=== PATIENT | female | born 1935 | race Caucasian/White ===

== ENCOUNTER 2016-06-28 17:03 | Emergency (ER) | payer OTHER ==
--- NOTE | 2016-06-28 18:03 | PROVIDER DOCUMENTATION ---
HPI-EENT General - General Chief Complaint: Nose Bleed Stated Complaint: NOSE BLEED Time Seen by Provider: 06/28/16 17:57 Source: patient Allergies/Adverse Reactions: Patient Allergies Allergy/AdvReac Type Severity Reaction Status Date / Time allopurinol Allergy Unknown Verified 06/28/16 20:11 amlodipine besylate * Allergy Unknown Verified 06/28/16 20:11 [From Norvasc] cephalexin monohydrate * Allergy RASH Verified 06/28/16 20:11 [From Keflex] gemfibrozil [From Lopid] Allergy Unknown Verified 06/28/16 20:11 Home Medications: Home Medication List Medication Instructions Recorded Confirmed Last Taken Type Fentanyl 25 Microgm/Hr Patch 1 each TD Q72H #10 patch 03/04/15 06/28/16 Unknown Rx [Duragesic 25 Microgm/Hr Patch] Acetaminophen [Tylenol] 500 mg PO Q6H PRN PRN 06/28/16 06/28/16 Unknown History Aspirin [Aspir-Low] 81 mg PO DAILY 06/28/16 06/28/16 Unknown History Bumetanide 2 mg PO BID 06/28/16 06/28/16 Unknown History Clopidogrel [Plavix] 75 mg PO DAILY 06/28/16 06/28/16 Unknown History Cyanocobalamin/Folic Acid [Vitamin 4 each PO DAILY 06/28/16 06/28/16 Unknown History [id number] Acid Tablet] Duloxetine [Cymbalta] 30 mg PO DAILY 06/28/16 06/28/16 Unknown History Famotidine 20 mg PO DAILY 06/28/16 06/28/16 Unknown History Levothyroxine [Synthroid] 88 microgm PO DAILY 06/28/16 06/28/16 Unknown History Loperamide [Imodium] 2 mg PO PRN PRN 06/28/16 06/28/16 Unknown History Metoprolol [Lopressor] 25 mg PO BID 06/28/16 06/28/16 Unknown History Mirtazapine [Remeron] 15 mg PO QHS 06/28/16 06/28/16 Unknown History Ondansetron HCl [Zofran] 4 mg PO Q4-6H PRN PRN 06/28/16 06/28/16 Unknown History Oxycodone HCl/Acetaminophen 0.5 each PO Q6-8H PRN PRN 06/28/16 06/28/16 Unknown History [Percocet 5-325 mg Tablet] Oxymetazoline Nasal [place] [Afrin 2 spray ANNMARIE Q12HR PRN #1 bottle 06/28/16 Unknown Rx Nasal [place]] PRAVAstatin [Pravachol] 40 mg PO QHS 06/28/16 06/28/16 Unknown History Potassium Chloride [Klor-Con M10] 10 meq PO DAILY 06/28/16 06/28/16 Unknown History Sennosides/Docusate Sodium 2 tab PO DAILY 06/28/16 06/28/16 Unknown History [Senna-S Tablet] Terbinafine HCl 1% Cream [Lamisil 1 applicatn TOP DAILY 06/28/16 06/28/16 Unknown History 1% Cream] - History of Present Illness-EENT General Nature of Presenting Problem: 81 y/o WF c/o nosebleeds x 2.5 months. States that today they have been present for about 3 days, worse today. States L nostril bleed. States that she is also spitting up clots. Reports intermittent. States epistaxis lasting 1-2 hours at a time, although can't quantify how much bleeding occurred. States on plavix. Family reports bilat LE swelling x 1 month. States taking doxycycline for redness in legs, per dr. Bhat; states on day 8. Review of Systems - Adult - REVIEW OF SYSTEMS - ADULT Constitutional: reports: no symptoms reported. denies: chills, fever Eyes: reports: no symptoms reported. denies: blurred vision, double vision Ears, Nose, Mouth & Throat: reports: no symptoms reported. denies: ear pain, nose pain Cardiovascular: reports: see HPI, edema. denies: chest pain, palpitations Respiratory: reports: no symptoms reported. denies: dyspnea on exertion, shortness of breath Gastrointestinal: reports: no symptoms reported. denies: abdominal pain, nausea , vomiting Genitourinary: reports: no symptoms reported. denies: dysuria, frequency Musculoskeletal: reports: no symptoms reported. denies: joint pain, joint swelling Integumentary: reports: no symptoms reported. denies: nail changes, rash Neurological: reports: no symptoms reported. denies: numbness, paresthesia Psychiatric: reports: no symptoms reported Endocrine: reports: no symptoms reported. denies: cold intolerance, heat intolerance Hematologic/Lymphatic: reports: no symptoms reported. denies: easy bruising, prolonged bleeding Allergic/Immunologic: reports: no symptoms reported All Other Systems: Reviewed and Negative Past History - Adult - PAST MEDICAL HISTORY-ADULT Review of Records: reports: Nursing Assessment Review, Medications Reviewed Major Childhood Illnesses: reports: denies history Cardiovascular: reports: CHF, HTN, murmur, OK Respiratory: reports: denies history Gastrointestinal: reports: hemorrhoids, ulcer Genitourinary: reports: kidney disease Musculoskeletal: reports: arthritis, other (gout) Neurological: reports: dementia Endocrine/Immune: reports: denies history, thyroid disorder Other Conditions: reports: skin disorder (shingles), other (hyponatremia) - PRIOR SURGERIES/PROCEDURES Surgical/Procedure History: reports: tonsillectomy, other (thyroidectomy) - IMMUNIZATION STATUS Childhood Immunizations: NUTD Flu Vaccine: UTD - FAMILY HISTORY Family History: reviewed, not pertinent, other (PAD) - SOCIAL HISTORY Smoking: quit greater than 1 year Physical Exam- EENT - Physical Exam EENT Initial Vital Signs Reviewed: Yes General Appearance: alert Eye Exam: bilateral eye: normal inspection, PERRL Ear Exam: bilateral ear: auricle normal Nasal Exam: dried blood (L nostril). negative: active bleeding Throat Exam: normal mouth inspection, pharynx normal Neck: supple, normal inspection Respiratory: lungs clear, normal breath sounds. negative: crackles, rales, rhonchi, stridor, wheezing Cardiovascular: regular rate, rhythm, systolic murmur. negative: bradycardia, tachycardia Back Exam: normal inspection Extremity: normal capillary refill, erythema (bilat LE just inferior to knee), pedal edema (bilat LE, 2+, just inferior to knees). negative: no pedal edema Integumentary: erythema, other (shiny waxy appearring skin to bilat LE, on top of swelling and redness) Neurologic: negative: aphasia Psych/Mental Status: normal mood/affect Progress - PLAN OF CARE/RESULTS Progress/Plan/Lab Results: Laboratory Tests 06/28/16 06/28/16 06/28/16 19:04 19:04 19:04 WBC 4.48 L RBC 4.00 L Hgb 11.5 L Hct 36.0 L MCV 90.0 MCH 28.8 MCHC 31.9 L RDW Std Deviation 14.9 H Plt Count 190 MPV 10.8 H Immature Gran % (Auto) 0.0 Neut % (Auto) 52.4 Lymph % (Auto) 34.2 [place] % (Auto) 9.8 H Eos % (Auto) 2.7 Baso % (Auto) 0.9 H Immature Gran # (Auto) 0.00 Neut # (Auto) 2.35 Lymph # (Auto) 1.53 Free[place] # (Auto) 0.44 Eos # (Auto) 0.12 Baso # (Auto) 0.04 Sodium 142 Potassium 3.5 Chloride 99 Carbon Dioxide 25 Anion Gap 18 BUN 25 H Creatinine 1.4 H Estimated GFR/1.73 m2 36 BUN/Creatinine Ratio 18 Glucose 88 Calculated Osmolality 287 Uric Acid 13.0 H Calcium 9.3 Total Bilirubin 0.30 AST 16 ALT 7 L Alkaline Phosphatase 99 Iyi-D-Hyhrdiwwugb Pept Total Protein 6.8 Albumin 3.7 Globulin 3.1 Albumin/Globulin Ratio 1.2 Blood Type A POSITIVE Antibody Screen NEGATIVE 06/28/16 19:04 WBC RBC Hgb Hct MCV MCH MCHC RDW Std Deviation Plt Count MPV Immature Gran % (Auto) Neut % (Auto) Lymph % (Auto) [place] % (Auto) Eos % (Auto) Baso % (Auto) Immature Gran # (Auto) Neut # (Auto) Lymph # (Auto) [place] # (Auto) Eos # (Auto) Baso # (Auto) Sodium Potassium Chloride Carbon Dioxide Anion Gap BUN Creatinine Estimated GFR/1.73 m2 BUN/Creatinine Ratio Glucose Calculated Osmolality Uric Acid Calcium Total Bilirubin AST ALT Alkaline Phosphatase Jjq-[id number]-Sshnayyzqjs Pept 2440 H Total Protein Albumin Globulin Albumin/Globulin Ratio Blood Type Antibody Screen Orders Category Date Time Status CBC WITH ELECTRONIC DIFF [HEME] Stat Lab 06/28/16 19:04 Completed COMPREHENSIVE METABOLIC PANEL [CHEM] Stat Lab 06/28/16 19:04 Completed PRO B-NATRIURETIC PEPTIDE Stat Lab 06/28/16 19:04 Completed TYPE & SCREEN [BBK] Stat Lab 06/28/16 19:04 Completed URIC ACID [CHEM] Stat Lab 06/28/16 19:04 Completed Vital Signs Temp Pulse Resp BP Pulse Ox 06/28/16 22:36 50 L 18 149/63 99 06/28/16 17:34 98.1 F 48 L 16 133/88 100 allopurinol Allergy (Verified 06/28/16 20:11) Unknown amlodipine besylate * [From Norvasc] Allergy (Verified 06/28/16 20:11) Unknown cephalexin monohydrate * [From Keflex] Allergy (Verified 06/28/16 20:11) RASH gemfibrozil [From Lopid] Allergy (Verified 06/28/16 20:11) Unknown Fentanyl 25 Microgm/Hr Patch [Duragesic 25 Microgm/Hr Patch] 1 each TD Q72H #10 patch 03/04/15 Acetaminophen [Tylenol] 500 mg PO Q6H PRN PRN 06/28/16 Aspirin [Aspir-Low] 81 mg PO DAILY 06/28/16 Bumetanide 2 mg PO BID 06/28/16 Clopidogrel [Plavix] 75 mg PO DAILY 06/28/16 Cyanocobalamin/Folic Acid [Vitamin N97-Ehurm Acid Tablet] 4 each PO DAILY Duloxetine [Cymbalta] 30 mg PO DAILY 06/28/16 Famotidine 20 mg PO DAILY 06/28/16 Levothyroxine [Synthroid] 88 microgm PO DAILY 06/28/16 Loperamide [Imodium] 2 mg PO PRN PRN 06/28/16 Metoprolol [Lopressor] 25 mg PO BID 06/28/16 Mirtazapine [Remeron] 15 mg PO QHS 06/28/16 Ondansetron HCl [Zofran] 4 mg PO Q4-6H PRN PRN 06/28/16 Oxycodone HCl/Acetaminophen [Percocet 5-325 mg Tablet] 0.5 each PO Q6-8H PRN PRN 06/28/16 Oxymetazoline Nasal [place] [Afrin Nasal [place]] 2 spray ANNMARIE Q12HR PRN #1 bottle PRAVAstatin [Pravachol] 40 mg PO QHS 06/28/16 Potassium Chloride [Klor-Con M10] 10 meq PO DAILY 06/28/16 Sennosides/Docusate Sodium [Senna-S Tablet] 2 tab PO DAILY 06/28/16 Terbinafine HCl 1% Cream [Lamisil 1% Cream] 1 applicatn TOP DAILY 06/28/16 ZOSTER WITHOUT COMPLICATIONS (06/28/16) DISORDER OF THYROID, UNSPECIFIED (06/28/16) UNSPECIFIED DEMENTIA WITHOUT BEHAVIORAL DISTURBANCE (06/28/16) ESSENTIAL (PRIMARY) HYPERTENSION (06/28/16) OLD MYOCARDIAL INFARCTION (06/28/16) HEART FAILURE, UNSPECIFIED (06/28/16) GOUT, UNSPECIFIED (06/28/16) UNSPECIFIED OSTEOARTHRITIS, UNSPECIFIED SITE (06/28/16) CARDIAC MURMUR, UNSPECIFIED (06/28/16) EPISTAXIS (06/28/16) 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) USE OF ASPIRIN (06/28/16) 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) DRUG THERAPY (06/28/16) PERSONAL HISTORY OF NICOTINE DEPENDENCE (06/28/16) Laboratory 06/28/16 06/28/16 06/28/16 19:04 19:04 19:04 WBC RBC Hgb Hct MCV MCH MCHC RDW Std Deviation Plt Count MPV Immature Gran % (Auto) Neut % (Auto) Lymph % (Auto) [place] % (Auto) Eos % (Auto) Baso % (Auto) Immature Gran # (Auto) Neut # (Auto) Lymph # (Auto) [place] # (Auto) Eos # (Auto) Baso # (Auto) Sodium 142 Potassium 3.5 Chloride 99 Carbon Dioxide 25 Anion Gap 18 BUN 25 H Creatinine 1.4 H Estimated GFR/1.73 m2 36 BUN/Creatinine Ratio 18 Glucose 88 Calculated Osmolality 287 Uric Acid 13.0 H Calcium 9.3 Total Bilirubin 0.30 AST 16 ALT 7 L Alkaline Phosphatase 99 Nvi-L-Eryfmyrnbif Pept 2440 H Total Protein 6.8 Albumin 3.7 Globulin 3.1 Albumin/Globulin Ratio 1.2 Blood Type A POSITIVE Antibody Screen NEGATIVE 06/28/16 19:04 WBC 4.48 L RBC 4.00 L Hgb 11.5 L Hct 36.0 L MCV 90.0 MCH 28.8 MCHC 31.9 L RDW Std Deviation 14.9 H Plt Count 190 MPV 10.8 H Immature Gran % (Auto) 0.0 Neut % (Auto) 52.4 Lymph % (Auto) 34.2 [place] % (Auto) 9.8 H Eos % (Auto) 2.7 Baso % (Auto) 0.9 H Immature Gran # (Auto) 0.00 Neut # (Auto) 2.35 Lymph # (Auto) 1.53 [place] # (Auto) 0.44 Eos # (Auto) 0.12 Baso # (Auto) 0.04 Sodium Potassium Chloride Carbon Dioxide Anion Gap BUN Creatinine Estimated GFR/1.73 m2 BUN/Creatinine Ratio Glucose Calculated Osmolality Uric Acid Calcium Total Bilirubin AST ALT Alkaline Phosphatase Edy-U-Prauenzekyy Pept Total Protein Albumin Globulin Albumin/Globulin Ratio Blood Type Antibody Screen Discussed pt with Dr. Hicks; he agreed with d/c home. Departure - Departure Time of Disposition Order: 22:29 DIAGNOSIS: Epistaxis, recurrent Disposition: HOME 01 Certified Medical Emergency: Emergent Condition: Stable Additional Instructions: Take medications as directed. Follow up with ENT for further management. Return to ED if bleeding continues over 30 minutes. ED Follow Up Instructions: You have been treated by a care provider in the Emergency Department. These instructions are being provided to you so you can have an understanding of how to care for yourself upon discharge. Upon discharge from the Emergency Department, you are responsible for making arrangements for follow-up care by a physician of your choice. Take all prescribed medications as directed. Return to the Emergency Department immediately for any new or worsening symptoms. You may call the Physician Referral phone number at [phone] to obtain a list of Physicians who are taking new patients. Prescriptions: Oxymetazoline Nasal [place] [Afrin Nasal [place]] 2 spray ANNMARIE Q12HR PRN #1 bottle PRN Reason: Bleeding Referrals: Chet Bhat MD [Primary Care Provider] - Yesenia Plummer MD [STAFF PHYSICIAN] - Instructions: Nosebleed, Mitn-mo-Igrb Attestation - Physician/ SHANIA Attestation Patient care was provided by Advanced Practice Provider:: Yes Advanced Practice Provider:: Carly Agustin Advanced Practice Provider documentation review:: The Mid-level provider documentation, treatment plan and medical decision making was reviewed by the physician who agrees with all treatment and medical decision making by the MLP.
[2016-06-28 19:16] LABS: MANUAL DIFF NEEDED? NO
[2016-06-28 19:22] LABS: BASO% 0.9 % (0.0-0.8); EOS# 0.12 X1000 (0.0-0.7); EOS% 2.7 % (0.0-10.0); HEMOGLOBIN 11.5 g/dL (12.0-16.0); LYMPH# 1.53 X1000 (1.2-3.4); LYMPH% 34.2 % (20.5-51.1); MCH 28.8 PG (27-31); MCHC 31.9 g/dL (33-37); MONO# 0.44 X1000 (0.11-0.59); MONO% 9.8 % (1.7-9.3); MPV 10.8 FL (7.4-10.4); NEUT% 52.4 % (42.2-75.2); PLT 190 X1000 (130-400)
[2016-06-28 20:52] LABS: ALBUMIN 3.7 g/dL (3.5-5.0); CALCIUM 9.3 mg/dL (8.8-10.2); POTASSIUM 3.5 mmol/L (3.5-5.1); TOTAL BILIRUBIN 0.3 mg/dL (0.20-1.00); TOTAL PROTEIN 6.8 g/dL (6.3-8.3)
[2016-06-28 22:36] VITALS: BP 149/63
== END 2016-06-28 22:59 | disposition home or self-care (01) ==
LOC: ED 17:03
DX: R04.0 Epistaxis (principal); I50.9 Heart failure, unspecified; I10 Essential (primary) hypertension; I25.2 Old myocardial infarction; M19.90 Unspecified osteoarthritis, unspecified site; E07.9 Disorder of thyroid, unspecified; R01.1 Cardiac murmur, unspecified; B02.9 Zoster without complications; Z79.899 Other long term (current) drug therapy; F03.90 Unspecified dementia, unspecified severity, without behavioral disturbance, psychotic disturbance, mood disturbance, and anxiety; M10.9 Gout, unspecified; Z87.891 Personal history of nicotine dependence; Z79.82 Long term (current) use of aspirin
CPT/HCPCS: 36415; 80053; 83880; 84550; 85025; 86850; 86900; 86901; 99283